=== PATIENT | female | born 1970 | race Two or more races ===

== ENCOUNTER 2024-01-07 21:39 | Emergency (ER) | payer OTHER ==
[~2024-01-07] VITALS: Ht 157.5 cm; Wt 106.9 kg
[2024-01-07] MEDS ORDERED: AUG875T PO (22:59)
[2024-01-07] MEDS ORDERED: IBUP-1455 PO (22:59)
[2024-01-07] MEDS ORDERED: ACET500T58 PO (22:59)
[2024-01-07] MEDS: HYDROcodone-ACET 10/325MG TAB PO ONE (23:00)
[2024-01-07] MEDS: NEOMYCIN-BACITRACIN-POLYM UNITDOSE PKG TOP OINT TOP ONE (23:28)
[2024-01-07] MEDS: AMOXICILLIN/CLAVUL 875 MG TAB PO ONE (23:45)
[2024-01-07] MEDS: TETANUS-DIPTH-ACEL PERTUSSIS 0.5ML SYR Tdap IM ONE (23:46)
[2024-01-07 23:52] VITALS: BP 128/90; PULSE 96; RESP 18; TEMP 98.1; O2SAT 95
== END 2024-01-07 23:54 | disposition home or self-care (01) ==
LOC: ER 21:39
DX: S61.032A Puncture wound without foreign body of left thumb without damage to nail, initial encounter (principal); S61.052A Open bite of left thumb without damage to nail, initial encounter; Z23 Encounter for immunization; Z88.6 Allergy status to analgesic agent; W55.01XA Bitten by cat, initial encounter; Y93.89 Activity, other specified; Y92.89 Other specified places as the place of occurrence of the external cause; Y99.8 Other external cause status
CPT/HCPCS: 90471; 90715